=== PATIENT | female | born 1945 | race African-American/Black ===

== ENCOUNTER 2017-03-08 09:09 | Emergency (ER) | payer MEDICARE, BC ==
[~2017-03-08] VITALS: Ht 160 cm; Wt 62.6 kg
[~2017-03-08 09:09] MED LIST: AMLODIPINE BESY10 MG ORAL; ATENOLOL100 MG ORAL; GLIMEPIRIDE4 MG ORAL; GLUCOPHAGE850 MG ORAL; LANTUS5 UNITS SUBQ; LOSARTAN-HCTZ1 EACH ORAL; NORCO1 EA ORAL; SYNTHROID100 MCG ORAL; VITAMIN B COMP1 EAC2 ORAL; VITAMIN D400 INTLU ORAL; ZOCOR20 MG ORAL
[2017-03-08 09:31] VITALS: BP 200/66
[2017-03-08 09:55] VITALS: BP 183/65
[2017-03-08 10:00] VITALS: BP 183/65
--- NOTE | 2017-03-08 11:40 | Emergency Room Report ---
History of Present Illness General Chief Complaint: Hypertension Source: Medical Record Present Illness HPI 71-year-old female presents to ED for evaluation. Patient states she woke up this morning and her blood pressure was high. Notes history of hypertension and takes multiple medications. States she is compliant with her medications. took her morning medications prior to arrival. Denies any headaches or dizziness. Denies any chest pain or shortness of breath. No other aggravating relieving factors. No associated symptoms Allergies: Coded Allergies: No Known Allergies (Unverified , 03/18/13) Patient History Past Medical History: none Past Surgical History: none Pertinent Family History: none Social History: Denies: smoking, alcohol use, drug use Now: No Immunizations: UTD Reviewed Nursing Documentation: PMH: Agreed, PSxH: Agreed Nursing Documentation-PMH Hx Cardiac Problems: Yes Hx Hypertension: Yes Hx Diabetes: Yes - Hypothyroid Hx Gastrointestinal Problems: Yes - "Sometimes I have heartburn" Hx Neurological Problems: No Review of Systems All Other Systems: negative except mentioned in HPI Physical Exam Vital Signs Date Time Temp Pulse Resp B/P (MAP) Pulse Ox O2 Delivery O2 Flow Rate FiO2 03/08/17 09:11 97.9 80 16 219/82 99 Room Air Sp02 EP Interpretation: reviewed, normal General Appearance: no apparent distress, alert, GCS 15, non-toxic Head: normocephalic, atraumatic Eyes: bilateral eye normal inspection, bilateral eye PERRL ENT: hearing grossly normal, normal pharynx, no angioedema, normal voice Neck: full range of motion, supple/symm/no masses Respiratory: chest non-tender, lungs clear, normal breath sounds, speaking full sentences Cardiovascular #1: regular rate, rhythm, no edema Cardiovascular #2: 2+ carotid (R), 2+ carotid (L), 2+ radial (R), 2+ radial (L) , 2+ dorsalis pedis (R), 2+ dorsalis pedis (L) Gastrointestinal: normal bowel sounds, non tender, soft, non-distended, no guarding, no rebound Rectal: deferred Genitourinary: normal inspection, no CVA tenderness Musculoskeletal: back normal, gait/station normal, normal range of motion, non- tender Neurologic: alert, oriented x3, responsive, motor strength/tone normal, sensory intact, speech normal Psychiatric: judgement/insight normal, memory normal, mood/affect normal, no suicidal/homicidal ideation Reflexes: 3+ bicep (R), 3+ bicep (L), 3+ tricep (R), 3+ tricep (L), 3+ knee (R) , 3+ knee (L) Skin: normal color, no rash, warm/dry, well hydrated Lymphatic: no adenopathy Medical Decision Making Diagnostic Impression: Primary Impression: Hypertension Qualified Codes: I10 - Essential (primary) hypertension ER Course Hospital Course 71-year-old female presents ED complaining of elevated BP, asymptomatic Differential diagnoses include: hypertensive urgency, hypertensive emergency, noncompliance with medication Clinical course Patient placed on stretcher. After initial history and physical I observe the patient on the monitor Patient had taken her medications prior to arrival. On reassessment blood pressure has since improved. I don't believe patient requires any additional treatment. This is asymptomatic hypertension I. I feel this is a highly complex case requiring extensive working including EKG/Rhythm strip, Xray/CT/US, Blood/urine lab work, repeat exams while in ED, and administration of strong opiates/narcotics for pain control, admission to hospital or close patient follow up. Diagnosis - hypertension Stable and discharged to home. continue medications as directed. Instructed to followup with PMD. Return to ED if symptoms recur or worsen Last Vital Signs Date Time Temp Pulse Resp B/P (MAP) Pulse Ox O2 Delivery O2 Flow Rate FiO2 03/08/17 10:00 97.9 71 18 183/65 98 Room Air Status: improved Disposition: HOME, SELF-CARE Condition: Stable Referrals: NON PHYSICIAN (PCP) Patient Instructions: Hypertension AYANNA MILLER M.D. Mar 08, 2017 11:40
== END 2017-03-08 10:00 | disposition home or self-care (01) ==
LOC: EMR 09:36
DX: I10 Essential (primary) hypertension (principal); E11.9 Type 2 diabetes mellitus without complications; E03.9 Hypothyroidism, unspecified
CPT/HCPCS: 99282

== ENCOUNTER 2017-08-20 09:49 | Inpatient (IN) | payer MEDICARE, BC ==
[~2017-08-20] VITALS: Ht 160 cm; Wt 66.7 kg
[2017-08-20] MEDS ORDERED: SYNTHROID100 MCG ORAL (09:54)
[2017-08-20] MEDS ORDERED: TENORMIN50 MG ORAL (09:54)
[2017-08-20] MEDS ORDERED: LASIX20 M1 ORAL (09:54)
[2017-08-20] MEDS ORDERED: GLIMEPIRIDE4 MG ORAL (09:54)
[2017-08-20] MEDS ORDERED: SIMVASTATIN20 MG ORAL (09:54)
[2017-08-20] MEDS ORDERED: NIFEDIPINE ER60 M2 ORAL (09:54)
[2017-08-20] MEDS ORDERED: HYDRALAZINE HC100 MG ORAL (09:54)
[2017-08-20] MEDS ORDERED: METFORMIN HCL1000 M1 ORAL (09:54)
[2017-08-20] MEDS ORDERED: BYSTOLIC20 MG ORAL (09:54)
[2017-08-20] MEDS ORDERED: LOSARTAN POTAS100 MG ORAL (09:54)
[2017-08-20] MEDS ORDERED: ECOTRIN81 MG PO (09:54)
[2017-08-20 10:00] VITALS: BP 150/55
--- NOTE | 2017-08-20 10:16 | Emergency Room Report ---
History of Present Illness General Chief Complaint: Generalized Weakness Source: Patient, EMS Present Illness HPI The patient presents with right-sided weakness. She woke up and felt a charley horse in her right leg and jumped up and had difficulty walking. She also feels numbness in her right arm. She denies any headache. She does have somewhat retention and edema. She's taking Lasix for that. He's never had a stroke in the past. Denies any chest pain, palpitations, dyspnea, fevers headache. When she went to bed last night she was well. She woke up about 9 this morning. Paramedics performed laps exam and says that she had no weakness. H/O DM and HTN Allergies: Coded Allergies: No Known Allergies (Unverified , 03/18/13) Patient History Past Medical History: see triage record Past Surgical History: hysterectomy Social History: Denies: smoking Social History Narrative at home Reviewed Nursing Documentation: PMH: Agreed, PSxH: Agreed Nursing Documentation-PMH Hx Cardiac Problems: Yes Hx Hypertension: Yes Hx Diabetes: Yes Hx Gastrointestinal Problems: Yes - "Sometimes I have heartburn" Hx Neurological Problems: No Review of Systems All Other Systems: negative except mentioned in HPI Physical Exam Vital Signs Date Time Temp Pulse Resp B/P (MAP) Pulse Ox O2 Delivery O2 Flow Rate FiO2 08/20/17 09:43 98.1 72 16 151/56 100 Room Air Sp02 EP Interpretation: reviewed, normal General Appearance: well appearing, no apparent distress, GCS 15 Head: normocephalic, atraumatic Eyes: bilateral eye normal inspection, bilateral eye PERRL, bilateral eye EOMI ENT: moist mucus membranes Neck: supple Respiratory: lungs clear, normal breath sounds Cardiovascular #1: regular rate, rhythm Cardiovascular #2: 2+ radial (R) Gastrointestinal: normal inspection, normal bowel sounds, non tender, no mass, non-distended Musculoskeletal: back normal, normal range of motion, other - unsteady gait with alleged R leg weakness Neurologic: oriented x3, peer health promoter III-XII nml as tested, motor weakness - 5 /5 except for drift, sensory deficit - subjective decreased sens R arm, other - R drift Psychiatric: mood/affect normal Skin: normal inspection, warm/dry Medical Decision Making Diagnostic Impression: Primary Impression: Stroke Qualified Codes: I63.9 - Cerebral infarction, unspecified Additional Impressions: Renal insufficiency CHF (congestive heart failure) Qualified Codes: I50.9 - Heart failure, unspecified Hyperglycemia ER Course The patient presents with right sided weakness. Last known well time was last night before going to bed. Differential includes CVA, electrolyte balance, acute myocardial infarction, bleed amongst others. Evaluation will be was CT, EKG and labs. Based on the CT scan that she may need to have be transferred [facility] hospital care. Patient outside of window for TPA or transfer to stroke center. EKG without injury. Chest x-ray with minimal cardiomegaly. CT the head shows old changes no acute bleed or mass. Labs are significant for renal insufficiency. The patient is given insulin. In addition to that she's given aspirin. The patient is to telemetry to the care of Dr. Mcfarlane. Her neurologic exam is unchanged. Niece noted some resp difficulty. Patient denies. Rales. Lasix given. Improved. Dr. Mcfarlane evaluated patient in ED. Admit telemetry Dr. Mcfarlane. Laboratory Tests Test 08/20/17 09:55 08/20/17 11:58 White Blood Count 12.0 K/UL (4.8-10.8) H Red Blood Count 4.09 M/UL (4.20-5.40) L Hemoglobin 11.1 G/DL (12.0-16.0) L Hematocrit 33.6 % (37.0-47.0) L Mean Corpuscular Volume 82 FL (80-99) Mean Corpuscular Hemoglobin 27.1 PG (27.0-31.0) Mean Corpuscular Hemoglobin Concent 32.9 G/DL (32.0-36.0) Red Cell Distribution Width 13.8 % (11.6-14.8) Platelet Count 361 K/UL (150-450) Mean Platelet Volume 7.1 FL (6.5-10.1) Neutrophils (%) (Auto) 78.0 % (45.0-75.0) H Lymphocytes (%) (Auto) 13.7 % (20.0-45.0) L Monocytes (%) (Auto) 6.3 % (1.0-10.0) Eosinophils (%) (Auto) 0.7 % (0.0-3.0) Basophils (%) (Auto) 1.4 % (0.0-2.0) Erythrocyte Sedimentation Rate 58 MM/HR (0-30) H Prothrombin Time 9.3 SEC (9.30-11.50) Prothrombin Time INR 0.9 (0.9-1.1) PTT 26 SEC (23-33) Sodium Level 133 MMOL/L (136-145) L Potassium Level 4.4 MMOL/L (3.5-5.1) Chloride Level 103 MMOL/L (98-107) Carbon Dioxide Level 22 MMOL/L (21-32) Anion Gap 9 mmol/L (5-15) Blood Urea Nitrogen 42 mg/dL (7-18) H Creatinine 2.7 MG/DL (0.55-1.30) H Estimate Glomerular Filtration Rate mL/min (>60) Glucose Level 201 MG/DL (74-106) H Calcium Level 8.8 MG/DL (8.5-10.1) Total Bilirubin 0.2 MG/DL (0.2-1.0) Aspartate Amino Transferase (AST) 43 U/L (15-37) H Alanine Aminotransferase (ALT) 41 U/L (12-78) Alkaline Phosphatase 77 U/L (46-116) Total Creatine Kinase 212 U/L (26-308) Troponin I 0.004 ng/mL (0.000-0.056) Pro-B-Type Natriuretic Peptide 3132 pg/mL (0-125) H Total Protein 7.1 G/DL (6.4-8.2) Albumin 3.0 G/DL (3.4-5.0) L Globulin 4.1 g/dL Albumin/Globulin Ratio 0.7 (1.0-2.7) L Thyroid Stimulating Hormone (TSH) 3.853 uiU/mL (0.358-3.740) Urine Color Pale yellow Urine Appearance Clear Urine pH 6 (4.5-8.0) Urine Specific [place] 1.010 (1.005-1.035) Urine Protein 4+ (NEGATIVE) H Urine Glucose (UA) 1+ (NEGATIVE) H Urine Ketones Negative (NEGATIVE) Urine Occult Blood Negative (NEGATIVE) Urine Nitrite Negative (NEGATIVE) Urine Bilirubin Negative (NEGATIVE) Urine Urobilinogen Normal MG/DL (0.0-1.0) Urine Leukocyte Esterase Negative (NEGATIVE) Urine RBC 0-2 /HPF (0 - 2) Urine WBC 0-2 /HPF (0 - 2) Urine Squamous Epithelial Cells Few /LPF (NONE/OCC) Urine Bacteria Few /HPF (NONE) EKG Diagnostic Results Rate: normal Rhythm: NSR ST Segments: no acute changes Rhythm Strip Diag. Results EP Interpretation: yes Rhythm: NSR, no PVC's, no ectopy Chest X-Ray Diagnostic Results Chest X-Ray Diagnostic Results : Chest X-Ray Ordered: Yes # of Views/Limited/Complete: 1 View Indication: Other EP Interpretation: Yes Interpretation: no consolidation, no effusion, no pneumothorax, other - cardiomegally Impression: Other Electronically Signed by: Electronically signed by Eulogio Tenorio MD CT/MRI/US Diagnostic Results CT/MRI/US Diagnostic Results : Imaging Test Ordered: head Impression Some cortical calcifications in the right parietal lobe. No edema or mass. No intracranial hemorrhage or edema or mass effect. Low-attenuation in the pritesh may be artifact. Mild age-related enlargement of the ventricles and extra- axial CSF spaces. Chief periventricular white matter chronic ischemic change. Atarax surgery. Sinuses are clear. Assays are clear. Calvarium is intact. Negative for acute intracranial lesion or mass effect. Right parietal cortical calcification suspect dystrophic however comparison with prior exams recommended. Consider contrast MRI for further evaluation for rule out of underlying mass Last Vital Signs Date Time Temp Pulse Resp B/P (MAP) Pulse Ox O2 Delivery O2 Flow Rate FiO2 08/20/17 19:00 63 20 150/61 95 Room Air 08/20/17 17:00 98.1 Status: improved Disposition: ADMITTED INPATIENT Condition: Serious Eulogio Tenorio M.D. Aug 20, 2017 10:16
[2017-08-20 10:28] LABS: BASOPHILS % (AUTO) 1.4 % (0.0-2.0); EOSINOPHILS % (AUTO) 0.7 % (0.0-3.0); HEMATOCRIT 33.6 % (37.0-47.0); HEMOGLOBIN 11.1 G/DL (12.0-16.0); LYMPHOCYTES % (AUTO) 13.7 % (20.0-45.0); MEAN CORPUSCULAR VOLUME 82 FL (80-99); MONOCYTES % (AUTO) 6.3 % (1.0-10.0); PLATELET COUNT 361 K/UL (150-450); RED BLOOD COUNT 4.09 M/UL (4.20-5.40); RED CELL DISTRIBUTION WIDTH 13.8 % (11.6-14.8)
[2017-08-20 10:40] LABS: ANION GAP 9 mmol/L (5-15); BLOOD UREA NITROGEN 42 mg/dL (7-18); CALCIUM 8.8 MG/DL (8.5-10.1); CARBON DIOXIDE 22 MMOL/L (21-32); CHLORIDE 103 MMOL/L (98-107); CREATININE 2.7 MG/DL (0.55-1.30); POTASSIUM 4.4 MMOL/L (3.5-5.1); SODIUM 133 MMOL/L (136-145)
[2017-08-20 10:46] LABS: INR 0.9 (0.9-1.1)
--- NOTE | 2017-08-20 10:51 | Diagnostic Imaging Report ---
Indications: Right-sided weakness and right arm numbness Technique: Spiral acquisitions obtained through the brain. Angled axial and coronal 5 x 5 mm slices were reconstructed. Total dose length product 1404.24 mGycm. CTDI vol(s) 70.38 mGy. Dose reduction achieved using automated exposure control Comparison: None. Findings: There are some cortical calcifications in the right parietal lobe. No associated edema or mass. No acute intracranial hemorrhage or edema, mass effect, nor midline shift. Low-attenuation in the pritesh is likely artifactual. There is mild age-related enlargement of the ventricles and extra-axial CSF spaces. There is periventricular deep white matter chronic ischemic change. There is evidence of prior cataract surgery on the right. The sinuses are clear. The mastoids are clear. The calvarium is intact Impression: Negative for acute intracranial bleed or mass effect Right parietal cortical calcifications. Suspect dystrophic. However, comparison with any prior exams may be available as recommended. Consider contrast MRI for further evaluation to rule out underlying mass Other chronic and age-related changes, as described The CT scanner at [facility] is accredited by the [employer] and the scans are performed using protocols designed to limit radiation exposure to as low as reasonably achievable to attain images of sufficient resolution adequate for diagnostic evaluation.
[2017-08-20 10:54] LABS: ALANINE AMINOTRANSFERASE 41 U/L (12-78); ALBUMIN/GLOBULIN RATIO 0.7 (1.0-2.7); ALKALINE PHOSPHATASE 77 U/L (46-116); ASPARTATE AMINO TRANSFERASE 43 U/L (15-37); BILIRUBIN,TOTAL 0.2 MG/DL (0.2-1.0); CREATINE KINASE 212 U/L (26-308)
--- NOTE | 2017-08-20 11:33 | Diagnostic Imaging Report ---
Indication: Shortness of breath Technique: One view of the chest Comparison: none Findings: The heart is enlarged. The lungs and pleural spaces are clear. The bones are unremarkable Impression: Cardiac megaly No definite acute process This agrees with the preliminary interpretation provided by the emergency room physician
[2017-08-20 12:00] VITALS: BP 147/47
[2017-08-20 12:07] LABS: APPEARANCE,URINE CLEAR; BILIRUBIN, URINE NEGATIVE (NEGATIVE); COLOR,URINE PALE YELLOW; GLUCOSE, URINE (UA) 1+ (NEGATIVE); KETONES,URINE NEGATIVE (NEGATIVE); LEUKOCYTE ESTERASE ,URINE NEGATIVE (NEGATIVE); NITRITE,URINE NEGATIVE (NEGATIVE); PH,URINE 6 (4.5-8.0); PROTEIN,URINE 4+ (NEGATIVE); UROBILINOGEN,URINE NORMAL MG/DL (0.0-1.0)
[2017-08-20 14:00] VITALS: BP 140/72
[2017-08-20] MEDS ORDERED: NOVOLOG MI100 UNIT/3 SQ (14:12)
[2017-08-20] MEDS ORDERED: Nitroglycerin Subl 0.4mg tab SL PRN (14:45)
[2017-08-20] MEDS ORDERED: Miralax 17gm pkt ORAL PRN (14:45)
[2017-08-20 16:00] VITALS: BP 166/59
[2017-08-20] MEDS: NovoLOG Insulin Flexpen SUBQ SCH ×3 (17:22→20:33)
[2017-08-20] MEDS ORDERED: Furosemide 40mg tab ORAL SCH (18:00)
[2017-08-20] MEDS ORDERED: Glimepiride 4mg tab ORAL SCH (18:00)
[2017-08-20 19:00] VITALS: BP 150/61
[2017-08-20 20:00] VITALS: BP 157/75
[2017-08-20] MEDS: Furosemide 40mg tab ORAL SCH (20:29)
[2017-08-20] MEDS: Heparin 5000 units/ml inj SUBQ SCH (20:31)
[2017-08-20] MEDS: Docusate 100mg cap ORAL SCH (20:34)
[2017-08-21] VITALS (11 sets, daily range): BP systolic 146–187; BP diastolic 58–92
--- NOTE | 2017-08-21 00:45 | History and Physical Report ---
DATE OF ADMISSION: 08/20/2017 CHIEF COMPLAINT AND REASON FOR HOSPITALIZATION: The patient is admitted with possible CVA, weakness, and gait disorder. HISTORY OF PRESENT ILLNESS: The patient is a 71-year-old lady with long-standing diabetes more than 10 years, hypertension, chronic kidney disease. She said she woke up this morning with some cramping in her right leg and when she got out of bed, she had difficulty walking to the bathroom and was unsteady. She also noted some right hand numbness and sleepiness per right hand. No complete paresis. She rested and then when she woke up again, this was continuing and she called the paramedics and was brought to the emergency room. The patient does have a history of diabetic neuropathy and also carpal tunnel disease, but the right hand sensation is different from those that she has had in the past. Three weeks ago, she had a cold and had some shortness of breath at that time. She has chronic leg edema and likely chronic kidney disease. There is no history of ME or angina or arrhythmias. She has had somewhat of a decreased appetite lately. She was seen in the emergency room and felt the need to be admitted for this problem. PAST SURGICAL HISTORY: Hysterectomy for benign disease in 1986, cataract in the right eye. She has also had laser for diabetic retinopathy in the left eye. MEDICATIONS: At home include amlodipine 10 mg daily; aspirin 81 mg daily; atenolol 50 mg daily; furosemide 20 mg b.i.d.; glimepiride 4 mg b.i.d.; losartan and hydrochlorothiazide 100/25 mg daily; hydralazine 100 mg every eight hours; NovoLog 70/30 24 units three times a day; Synthroid 100 mcg daily; metformin 1000 mg b.i.d. or 850 b.i.d., it is not clear; Bystolic 20 mg daily; nifedipine ER 60 mg b.i.d.; Zocor 20 mg daily; vitamin B complex daily; vitamin D 2000 units daily. ALLERGIES: None known. HABITS: She is a nondrinker and nonsmoker. No use of illicit drugs. REVIEW OF SYSTEMS: HEAD, EYES, EARS, NOSE, AND THROAT: History of diabetic retinopathy. 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 ENDOCRINE: Diabetes, obesity long-standing, history of hypothyroidism. PULMONARY: No asthma, TB, or chronic cough. She has had some shortness of breath. CARDIAC: No angina or ME. She is not sure if she has had CHF but she has had leg edema. GASTROINTESTINAL: She has had some anorexia lately. No gastrointestinal bleeding or ulcers. GENITOURINARY: No recent dysuria or hematuria. NEUROLOGIC: No prior history of CVA or syncope. PHYSICAL EXAMINATION: GENERAL: The patient is alert, pleasant lady in no acute distress, seen in the emergency department. VITAL SIGNS: Temperature 98.1 degrees, pulse 72, respirations 16, and blood pressure . HEAD EYES, EARS, NOSE, AND THROAT: Sclerae nonicteric. Ocular motions intact in all directions. Oral mucosa moist. NECK: No adenopathy or thyroid enlargement. LUNGS: Clear to auscultation. HEART: Rhythm is regular. There is an apical S4 and a 1 to 2/6 systolic ejection murmur along the left sternal border. ABDOMEN: Soft without organomegaly or masses. EXTREMITIES: Show 2+ leg edema. NEUROLOGIC: The patient is alert and oriented. Speech is clear. Ocular motions intact in all directions. Smile is symmetric. Tongue is midline. She moves all extremities equally. Dorsiflexion of the legs appear to be normal. I do not see any palmar drift. PERTINENT LABORATORY AND DIAGNOSTIC DATA: A CT of brain was negative for acute intracranial bleed or mass effect. Right parietal cortical calcifications were noted. Chronic age related changes as above. The chest x-ray was done showing cardiomegaly, no acute process. Laboratory, white count 12, hemoglobin 11.1. Sodium 133, potassium 4.4, BUN 42, creatinine 2.7, glucose 201. BNP 3132. Troponin 0.004. Albumin 3.0. Urinalysis shows 0 to 2 white cells, 0 to 2 red cells, 4+ proteinuria. IMPRESSION: The patient presents with some difficulty walking and right-sided symptoms, possible lacunar infarct. MRI is pending. She also has what appears to be diabetic nephropathy, retinopathy, and neuropathy. She has chronic kidney disease stage 3 to 4 and heavy proteinuria. The emergency room physician gave her Lasix as he felt he heard rales and there was concern for congestive heart failure and she does have an elevated BNP. PLAN: The patient will be observed closely for any neurologic deficit. We will get MRI of the brain. Check a carotid duplex. Continue her treatment for her fluid overload, diabetes, and hypertension. Tyree Mcfarlane M.D. DR: David JOB#: [id number] CC:
[2017-08-21] MEDS: NovoLOG Insulin Flexpen SUBQ SCH ×7 (06:16→21:02)
[2017-08-21 06:39] LABS: BASOPHILS % (AUTO) 1.7 % (0.0-2.0); EOSINOPHILS % (AUTO) 1.9 % (0.0-3.0); HEMATOCRIT 33.9 % (37.0-47.0); HEMOGLOBIN 11.1 G/DL (12.0-16.0); LYMPHOCYTES % (AUTO) 20.7 % (20.0-45.0); MEAN CORPUSCULAR VOLUME 83 FL (80-99); MONOCYTES % (AUTO) 9.7 % (1.0-10.0); PLATELET COUNT 319 K/UL (150-450); RED BLOOD COUNT 4.09 M/UL (4.20-5.40); RED CELL DISTRIBUTION WIDTH 13.6 % (11.6-14.8); WHITE BLOOD COUNT 12.5 K/UL (4.8-10.8)
[2017-08-21 07:25] LABS: ANION GAP 9 mmol/L (5-15); BLOOD UREA NITROGEN 43 mg/dL (7-18); CALCIUM 8.7 MG/DL (8.5-10.1); CARBON DIOXIDE 23 MMOL/L (21-32); CHLORIDE 105 MMOL/L (98-107); CREATININE 2.6 MG/DL (0.55-1.30); POTASSIUM 4.6 MMOL/L (3.5-5.1); SODIUM 137 MMOL/L (136-145)
[2017-08-21] MEDS: Aspirin EC 81mg tab ORAL SCH (08:30)
[2017-08-21] MEDS: Furosemide 40mg tab ORAL SCH ×2 (08:31→17:32)
[2017-08-21] MEDS: Losartan 50mg tab ORAL SCH (08:31)
[2017-08-21] MEDS: Glimepiride 4mg tab ORAL SCH ×2 (08:31→17:32)
[2017-08-21] MEDS: Heparin 5000 units/ml inj SUBQ SCH ×2 (08:32→21:01)
[2017-08-21] MEDS: Docusate 100mg cap ORAL SCH ×2 (08:33→20:58)
--- NOTE | 2017-08-21 11:04 | Neurology Progress Note ---
Objective Physical Exam Last Vital Signs Date Time Temp Pulse Resp B/P (MAP) Pulse Ox O2 Delivery O2 Flow Rate FiO2 08/21/17 08:31 180/74 08/21/17 08:31 74 08/21/17 08:00 98.4 20 95 Room Air Laboratory Tests Test 08/20/17 11:58 08/21/17 05:45 Urine Color Pale yellow Urine Appearance Clear Urine pH 6 (4.5-8.0) Urine Specific [place] 1.010 (1.005-1.035) Urine Protein 4+ (NEGATIVE) H Urine Glucose (UA) 1+ (NEGATIVE) H Urine Ketones Negative (NEGATIVE) Urine Occult Blood Negative (NEGATIVE) Urine Nitrite Negative (NEGATIVE) Urine Bilirubin Negative (NEGATIVE) Urine Urobilinogen Normal MG/DL (0.0-1.0) Urine Leukocyte Esterase Negative (NEGATIVE) Urine RBC 0-2 /HPF (0 - 2) Urine WBC 0-2 /HPF (0 - 2) Urine Squamous Epithelial Cells Few /LPF (NONE/OCC) Urine Bacteria Few /HPF (NONE) White Blood Count 12.5 K/UL (4.8-10.8) H Red Blood Count 4.09 M/UL (4.20-5.40) L Hemoglobin 11.1 G/DL (12.0-16.0) L Hematocrit 33.9 % (37.0-47.0) L Mean Corpuscular Volume 83 FL (80-99) Mean Corpuscular Hemoglobin 27.2 PG (27.0-31.0) Mean Corpuscular Hemoglobin Concent 32.8 G/DL (32.0-36.0) Red Cell Distribution Width 13.6 % (11.6-14.8) Platelet Count 319 K/UL (150-450) Mean Platelet Volume 6.8 FL (6.5-10.1) Neutrophils (%) (Auto) 66.0 % (45.0-75.0) Lymphocytes (%) (Auto) 20.7 % (20.0-45.0) Monocytes (%) (Auto) 9.7 % (1.0-10.0) Eosinophils (%) (Auto) 1.9 % (0.0-3.0) Basophils (%) (Auto) 1.7 % (0.0-2.0) Sodium Level 137 MMOL/L (136-145) Potassium Level 4.6 MMOL/L (3.5-5.1) Chloride Level 105 MMOL/L (98-107) Carbon Dioxide Level 23 MMOL/L (21-32) Anion Gap 9 mmol/L (5-15) Blood Urea Nitrogen 43 mg/dL (7-18) H Creatinine 2.6 MG/DL (0.55-1.30) H Estimat Glomerular Filtration Rate mL/min (>60) Glucose Level 134 MG/DL (74-106) H Calcium Level 8.7 MG/DL (8.5-10.1) Impression/Recommendations Problems: (1) Acute ischemic left [employer] stroke (2) Renal insufficiency (3) CHF (congestive heart failure) (4) Hypertension Status: unchanged Recommendations #[id number] DAT ARBOLEDA Aug 21, 2017 11:04
[2017-08-21] MEDS ORDERED: LORazepam Inj 2mg/ml 1ml IV ONE (11:15)
--- NOTE | 2017-08-21 14:15 | Diagnostic Imaging Report ---
Indication: Right hand numbness and gait disorder Technique: sagittal T1 fast spin echo, axial T1 FLAIR, axial T2 FLAIR, axial T2 FS PROPELLER, axial T2* GRE, axial diffusion weighted images. ADC and exponential ADC maps generated Comparison: Head CT 08/20/2017 Findings: Small focus of restricted diffusion is seen in the left side of the pritesh and midbrain. This demonstrates some high T2 signal. There is also an older lacunar infarct of the pritesh and midbrain, which is immediately to the right of midline and midbrain, extending slightly to the left of midline in the pritesh. This is also evident on the prior CT scan. No other foci of restricted diffusion. No acute hemorrhage. Mild age-related enlargement of the ventricles and extra axial CSF spaces. There is periventricular deep white matter chronic ischemic change. Small old lacunar infarcts versus prominent perivascular spaces are seen in the bilateral basal ganglia. The vascular flow voids are preserved. There is evidence of prior cataract surgery on the right. The sinuses are unremarkable Impression: Positive for acute infarct of the left pritesh and midbrain Negative for acute intracranial bleed or mass effect Multiple old infarcts, as described above Other chronic and age-related changes, as described Critical value findings phoned to Dr. Mcfarlane at the time of interpretation
--- NOTE | 2017-08-21 17:00 | Consultation ---
DATE OF CONSULTATION: 08/21/2017 NEUROLOGICAL CONSULTATION CONSULTING PHYSICIAN: Salvador Thomas M.D. REQUESTING PHYSICIAN: Tyree Mcfarlane M.D. HISTORY OF PRESENT ILLNESS: This is a 71-year-old female, seen in neurological consultation to evaluate an acute stroke. According to the patient as well as from medical records known that she is usually ambulatory without assistance, went to bed feeling fairly well, but then around 4 a.m., she woke up with sensation of cramp in her right calf. She tried to go to the bathroom, she felt very unsteady. She is claiming that right leg with not . In addition, she felt some numbness in her right upper extremity. She was able to walk to the bathroom by holding to the wall, come back, felt no improvement, and called paramedics. Ambulance arrived. Her vital signs are stable. Blood pressure 150/56, blood sugar 137, and respirations 16. Calypso coma scale was 15. The patient was brought to the emergency room. She was denying headache. No chest pain. No palpitations. No respiratory problems. No headache. According to the paramedics, the patient had no unilateral weakness. Blood pressure on admission was stable. There was slight drift on the right extremity, 5-/5. Stat CT of the brain was obtained. This revealed no acute intracranial abnormalities. There was a right parietal cortical calcification noted. Chest x-ray, no definitive acute process. Mild cardiomegaly noted. Lab work included CBC study with WBC 12.0, hemoglobin 11.1, and hematocrit 33.6. Coagulation panel was normal. Urinalysis, 4+ protein. Chemistry panel with elevated BUN of 42, creatinine 2.7, glucose 201, and BNP 3042. Normal troponin. Elevated TSH at 3.853. Since admission till present, there were no changes in her status. The patient noted some crampy pains in her left knee and neck. PAST MEDICAL HISTORY: The patient has extensive medical history. This included hypertension, diabetes, diabetic neuropathy, hypothyroidism, and hyperlipidemia. No previous strokes, TIA, or seizures. PAST SURGICAL HISTORY: Surgical procedures included laser surgery in the left eye, status post cataract removal right eye, and hysterectomy. MEDICATIONS: The patient's treatment prior to admission included amlodipine, aspirin, atenolol, furosemide, glimepiride, losartan, hydralazine, insulin, Synthroid, metformin, nifedipine, Zocor, and vitamin supplements. ALLERGIES: None reported. SOCIAL HISTORY: No alcohol. No drug abuse. Nonsmoker. FAMILY HISTORY: Noncontributory. REVIEW OF SYSTEMS: Now indicated slight cramps in her left knee and neck region. Clumsy right leg. Difficulty ambulation. She denies headache or dizziness. No chest pain. No palpitations. No respiratory problems. Denies abdominal pain or discomfort. No urine or bowel incontinence. She has swelling in both lower extremities. PHYSICAL EXAMINATION: GENERAL: This is a well-developed, well-nourished lady sitting in a chair. VITAL SIGNS: Now stable. Blood pressure went up to 180/74. She is afebrile. Heart rate of 74. HEENT: Head normocephalic. No evidence of trauma. Eyes, ears, and throat are clear. NECK: Supple. No meningeal signs. MUSCULOSKELETAL EXAMINATION: Unremarkable. A 1+ pitting edema at both ankles. Peripheral pulses 1+ and symmetric. MENTAL STATUS: The patient is alert and oriented x3 with no evidence of aphasia or apraxia. Cognitive function normal. CRANIAL NERVE II: Pupils both responding to light and accommodation. Extraocular movement intact. CRANIAL NERVE V: Normal corneal responses. CRANIAL NERVE VII: No facial asymmetry. CRANIAL NERVE VIII: Decreased hearing. CRANIAL NERVES IX THROUGH XII: Tongue is in midline. Symmetric palate elevation. MOTOR EXAMINATION: Revealed pronation drift in the right upper extremity. 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 A 5-/5 right hip flexor. No involuntary movement. No muscle wasting noted. Deep tendon reflexes depressed bilaterally. Plantar response is mute. SENSORY EXAMINATION: Decreased response to pin stimulation in both feet. COORDINATION: Clumsy right [id number] and [id number] test. GAIT: The patient had a positive Romberg test. She is very unsteady. Required full assist. IMPRESSION: 1. Acute onset of right hemiataxia and mild hemiparesis. Hemiparesis most likely representing left-sided ischemic hemispheric stroke. 2. Diabetes, diabetic polyneuropathy. 3. Hypertension. 4. Hyperlipidemia. 5. Renal insufficiency. DISCUSSION: The patient has evidence of acute neurological deficit, mild right hemiparesis, and gait hemiataxia suspicious for left BLEACHER OPERATOR distribution infarct. Acute stat MRI of the brain without contrast will be obtained. Review carotid duplex study. Repeat lipid panel, PAMELA, and sedimentation rate. Consider a 2D echocardiogram. Venous duplex of both lower extremities. The patient will continue with aspirin. Add Plavix 75 mg and statins. Maintain systolic blood pressure above 140 and below 170. PT and OT assessment and speech therapy assessment. Maintain fall precautions. We will follow with you. Thank you for allowing me to see this interesting patient in neurological consultation. Salvador Irish Thomas DR: KASI JOB#: [id number] CC:
--- NOTE | 2017-08-21 17:30 | General Progress Note ---
Assessment/Plan Problem List: (1) Dysphagia ICD Codes: R13.10 - Dysphagia, unspecified SNOMED: 55810185, 968196346 (2) CKD (chronic kidney disease) stage 3, GFR 30-59 ml/min ICD Codes: N18.3 - Chronic kidney disease, stage 3 (moderate) SNOMED: 682905156 (3) Diabetic nephropathy with proteinuria ICD Codes: E11.21 - Type 2 diabetes mellitus with diabetic nephropathy SNOMED: 52548891, 413376297 (4) Diabetes ICD Codes: E11.9 - Type 2 diabetes mellitus without complications SNOMED: 46723539 (5) CVA (cerebral vascular accident) ICD Codes: I63.9 - Cerebral infarction, unspecified SNOMED: 312280329 (6) Acute ischemic left BEAM DOFFER stroke ICD Codes: I63.532 - Cerebral infarction due to unspecified occlusion or stenosis of left posterior cerebral artery SNOMED: 217810802 (7) CHF (congestive heart failure) ICD Codes: I50.9 - Heart failure, unspecified SNOMED: 90063609 Qualifiers: Qualified Codes: I50.9 - Heart failure, unspecified (8) Hypertension ICD Codes: I10 - Essential (primary) hypertension SNOMED: 59201901 Assessment/Plan new cva, continue PT OT ST, titrate bp meds, insulin , rx for chf Subjective Constitutional: Reports: weakness Cardiovascular: Reports: no symptoms Respiratory: Reports: no symptoms Gastrointestinal/Abdominal: Reports: no symptoms Neurologic/Psychiatric: Reports: weakness Endocrine: Reports: no symptoms Hematologic/Lymphatic: Reports: anemia Allergies: Coded Allergies: No Known Allergies (Unverified , 03/18/13) Objective Last 24 Hour Vital Signs Date Time Temp Pulse Resp B/P (MAP) Pulse Ox O2 Delivery O2 Flow Rate FiO2 08/21/17 16:00 58 08/21/17 16:00 97.3 57 20 172/70 95 Room Air 08/21/17 14:50 61 20 150/72 95 Room Air 08/21/17 12:00 62 20 165/72 96 Room Air 08/21/17 12:00 63 08/21/17 11:30 63 20 178/71 95 Room Air 08/21/17 09:45 72 20 155/75 95 Room Air 08/21/17 08:31 180/74 08/21/17 08:31 74 180/74 08/21/17 08:30 74 180/74 08/21/17 08:00 63 08/21/17 08:00 98.4 74 20 180/74 95 Room Air 08/21/17 04:47 65 171/63 08/21/17 04:00 98.4 68 20 187/71 92 Room Air 08/21/17 04:00 66 08/21/17 00:00 60 08/21/17 00:00 98.4 66 20 146/61 96 Room Air 08/20/17 20:00 98.1 67 20 157/75 97 Room Air 08/20/17 20:00 63 08/20/17 19:00 63 20 150/61 95 Room Air Intake and Output 08/20/17 08/21/17 19:00 07:00 Intake Total 200 ml 240 ml Output Total 850 ml 250 ml Balance -650 ml -10 ml Intake Oral 200 ml 240 ml Output Urine Total 850 ml 250 ml # Voids 6 Laboratory Tests 08/21/17 05:45: White Blood Count 12.5H, Red Blood Count 4.09L, Hemoglobin 11.1L, Hematocrit 33.9L, Mean Corpuscular Volume 83, Mean Corpuscular Hemoglobin 27.2, Mean Corpuscular Hemoglobin Concent 32.8, Red Cell Distribution Width 13.6, Platelet Count 319, Mean Platelet Volume 6.8, Neutrophils (%) (Auto) 66.0, Lymphocytes (% ) (Auto) 20.7, Monocytes (%) (Auto) 9.7, Eosinophils (%) (Auto) 1.9, Basophils ( %) (Auto) 1.7, Sodium Level 137, Potassium Level 4.6, Chloride Level 105, Carbon Dioxide Level 23, Anion Gap 9, Blood Urea Nitrogen 43H, Creatinine 2.6H, Estimat Glomerular Filtration Rate , Glucose Level 134H, Calcium Level 8.7 Height (Feet): 5 Height (Inches): 3.00 Weight (Pounds): 147 General Appearance: no apparent distress, alert EENT: normal ENT inspection Neck: normal alignment Cardiovascular: normal rate, regular rhythm Respiratory/Chest: lungs clear Abdomen: non tender, soft Edema: 1+ Pedal (L), 1+ Pedal (R) 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
[2017-08-21] MEDS: HydrALAZINE 25mg tab ORAL SCH ×2 (18:18→20:58)
--- NOTE | 2017-08-21 18:23 | Cardiology Report ---
APPROVED REPORT EKG Measurement Heart [id number] Normal sinus rhythm Normal ECG
[2017-08-22] VITALS: BP 163/72
[2017-08-22 04:00] VITALS: BP 150/72
[2017-08-22] MEDS: NovoLOG Insulin Flexpen SUBQ SCH ×7 (05:39→20:41)
[2017-08-22] MEDS: HydrALAZINE 25mg tab ORAL SCH ×3 (05:39→17:13)
[2017-08-22 08:00] VITALS: BP 181/62
[2017-08-22 08:55] LABS: BASOPHILS % (AUTO) 1.2 % (0.0-2.0); EOSINOPHILS % (AUTO) 2.7 % (0.0-3.0); HEMATOCRIT 32.3 % (37.0-47.0); HEMOGLOBIN 10.6 G/DL (12.0-16.0); LYMPHOCYTES % (AUTO) 25.4 % (20.0-45.0); MEAN CORPUSCULAR VOLUME 83 FL (80-99); MONOCYTES % (AUTO) 10.2 % (1.0-10.0); NEUTROPHILS % (AUTO) 60.5 % (45.0-75.0); PLATELET COUNT 307 K/UL (150-450); RED BLOOD COUNT 3.92 M/UL (4.20-5.40); RED CELL DISTRIBUTION WIDTH 13.7 % (11.6-14.8); WHITE BLOOD COUNT 9.9 K/UL (4.8-10.8)
[2017-08-22] MEDS: Docusate 100mg cap ORAL SCH ×2 (09:00→20:42)
[2017-08-22] MEDS: Losartan 50mg tab ORAL SCH (09:00)
[2017-08-22] MEDS: Furosemide 40mg tab ORAL SCH ×2 (09:05→17:13)
[2017-08-22] MEDS: Glimepiride 4mg tab ORAL SCH ×2 (09:05→17:13)
[2017-08-22] MEDS: Aspirin EC 81mg tab ORAL SCH (09:05)
[2017-08-22] MEDS: Heparin 5000 units/ml inj SUBQ SCH ×2 (09:15→20:39)
[2017-08-22 09:16] LABS: ANION GAP 10 mmol/L (5-15); BLOOD UREA NITROGEN 46 mg/dL (7-18); CALCIUM 8.6 MG/DL (8.5-10.1); CARBON DIOXIDE 23 MMOL/L (21-32); CHLORIDE 103 MMOL/L (98-107); CREATININE 2.5 MG/DL (0.55-1.30); POTASSIUM 4.4 MMOL/L (3.5-5.1); SODIUM 136 MMOL/L (136-145)
--- NOTE | 2017-08-22 11:22 | Neurology Progress Note ---
Interim History Interim History ROS Limited/Unobtainable: No Complaints: unstable gait Events: better Objective Physical Exam Last Vital Signs Date Time Temp Pulse Resp B/P (MAP) Pulse Ox O2 Delivery O2 Flow Rate FiO2 08/22/17 09:16 66 181/62 08/22/17 08:00 99.3 18 94 Room Air Laboratory Tests Test 08/22/17 07:35 White Blood Count 9.9 K/UL (4.8-10.8) Red Blood Count 3.92 M/UL (4.20-5.40) L Hemoglobin 10.6 G/DL (12.0-16.0) L Hematocrit 32.3 % (37.0-47.0) L Mean Corpuscular Volume 83 FL (80-99) Mean Corpuscular Hemoglobin 27.1 PG (27.0-31.0) Mean Corpuscular Hemoglobin Concent 32.8 G/DL (32.0-36.0) Red Cell Distribution Width 13.7 % (11.6-14.8) Platelet Count 307 K/UL (150-450) Mean Platelet Volume 6.9 FL (6.5-10.1) Neutrophils (%) (Auto) 60.5 % (45.0-75.0) Lymphocytes (%) (Auto) 25.4 % (20.0-45.0) Monocytes (%) (Auto) 10.2 % (1.0-10.0) H Eosinophils (%) (Auto) 2.7 % (0.0-3.0) Basophils (%) (Auto) 1.2 % (0.0-2.0) Sodium Level 136 MMOL/L (136-145) Potassium Level 4.4 MMOL/L (3.5-5.1) Chloride Level 103 MMOL/L (98-107) Carbon Dioxide Level 23 MMOL/L (21-32) Anion Gap 10 mmol/L (5-15) Blood Urea Nitrogen 46 mg/dL (7-18) H Creatinine 2.5 MG/DL (0.55-1.30) H Estimat Glomerular Filtration Rate mL/min (>60) Glucose Level 174 MG/DL (74-106) H Calcium Level 8.6 MG/DL (8.5-10.1) Pro-B-Type Natriuretic Peptide 3595 pg/mL (0-125) H General: well developed, well nourished, no acute distress Head: normocophalic, atraumatic Neck: no rigidity EENT: benign Neurologic Exam Mental Status: awake, alert, oriented x4, normal cognition, good mathematical skills, normal recent memory, normal remote memory, preserved visuospatial function Speech: normal speech, no dysarthia Language: normal language, no aphasia Cranial Nerve II: fundus normal, visual ragsdale, no papilledema Cranial Nerves III, IV, : PERRLA, EOMI, pupils Cranial Nerve V: normal facial sensations, temporales function normal, masseters function normal, pterygoids function normal Cranial Nerve VII: normal facial expressions Cranial Nerve VIII: no nystagmus Cranial Nerve IX: gag response Cranial Nerve XI: trapezii function normal Cranial Nerve XII: no tongue atrophy/fasciculations Motor System: other - -5/5 R arm /leg Sensory: normal pinprick Coordination: other - clumsy R F/N and H/S Deep Tendon Reflexes: 0 bicep (L), 0 bicep (R), 0 tricep (L), 0 tricep (R), 0 brachioradialis (L), 0 brachioradialis (R), 0 knee (L), 0 knee (R), 0 ankle (L) , 0 ankle (R) Reflexes: mute plantar (L), mute plantar (R) Stance: other - unstable Gait: other - ataxic Impression/Recommendations Problems: (1) 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
--- NOTE | 2017-08-22 11:36 | Diagnostic Imaging Report ---
APPROVED REPORT CPT Code: 71487 Vascular Symptoms Comments: CVA Doppler Spectral Velocity Analysis RightLeft arteries. The Doppler spectral flow analysis indicates the degree of stenosis is mild (30%) in the common carotid artery, mild (50%) in the internal carotid artery, and mild (50%) in the external carotid artery. VERTEBRAL- The vertebral artery is patent, without evidence of stenosis or steal. arteries. The Doppler spectral flow analysis indicates the degree of stenosis is moderate (50%) in the common carotid artery, mild to moderate (50-59%) in the internal carotid artery, and the external carotid artery. VERTEBRAL- The vertebral artery is patent, without evidence of stenosis or steal.
[2017-08-22 12:00] VITALS: BP 134/63
[2017-08-22 16:00] VITALS: BP 156/73
[2017-08-22 20:06] VITALS: BP 188/72
--- NOTE | 2017-08-22 21:01 | General Progress Note ---
Assessment/Plan Problem List: (1) Dysphagia ICD Codes: R13.10 - Dysphagia, unspecified SNOMED: 27467747, 002908536 (2) CKD (chronic kidney disease) stage 3, GFR 30-59 ml/min ICD Codes: N18.3 - Chronic kidney disease, stage 3 (moderate) SNOMED: 789961617 (3) Diabetic nephropathy with proteinuria ICD Codes: E11.21 - Type 2 diabetes mellitus with diabetic nephropathy SNOMED: 24499680, 867014011 (4) Diabetes ICD Codes: E11.9 - Type 2 diabetes mellitus without complications SNOMED: 09335759 (5) CVA (cerebral vascular accident) ICD Codes: I63.9 - Cerebral infarction, unspecified SNOMED: 673256130 (6) 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 ICD Codes: I63.532 - Cerebral infarction due to unspecified occlusion or stenosis of left posterior cerebral artery SNOMED: 119498439 (7) CHF (congestive heart failure) ICD Codes: I50.9 - Heart failure, unspecified SNOMED: 71524809 Qualifiers: Qualified Codes: I50.9 - Heart failure, unspecified (8) Hypertension ICD Codes: I10 - Essential (primary) hypertension SNOMED: 98855208 Assessment/Plan new cva, continue PT OT ST, titrate bp meds, insulin , rx for chf Subjective Constitutional: Reports: weakness HEENT: Reports: no symptoms Cardiovascular: Reports: no symptoms Respiratory: Reports: no symptoms Gastrointestinal/Abdominal: Reports: no symptoms Genitourinary: Reports: no symptoms Neurologic/Psychiatric: Reports: weakness Endocrine: Reports: no symptoms Hematologic/Lymphatic: Reports: no symptoms Allergies: Coded Allergies: No Known Allergies (Unverified , 03/18/13) Objective Last 24 Hour Vital Signs Date Time Temp Pulse Resp B/P (MAP) Pulse Ox O2 Delivery O2 Flow Rate FiO2 08/22/17 20:06 97.7 75 20 188/72 95 Room Air 08/22/17 18:00 75 188/72 08/22/17 17:13 156/73 08/22/17 16:00 60 08/22/17 16:00 98.1 61 18 156/73 96 Room Air 08/22/17 12:00 97.9 60 18 134/63 95 Room Air 08/22/17 12:00 59 08/22/17 11:45 134/63 08/22/17 09:16 66 181/62 08/22/17 09:15 66 181/62 08/22/17 09:13 66 181/62 08/22/17 09:00 181/62 08/22/17 08:00 65 08/22/17 08:00 99.3 66 18 181/62 94 Room Air 08/22/17 05:39 150/72 08/22/17 04:00 97.5 60 21 150/72 93 08/22/17 04:00 59 08/22/17 00:00 97.3 66 20 163/72 93 Room Air 08/22/17 00:00 58 Intake and Output 08/21/17 08/22/17 19:00 07:00 Intake Total 360 ml 120 ml Output Total 350 ml 150 ml Balance 10 ml -30 ml Intake Oral 360 ml 120 ml Output Urine Total 350 ml 150 ml # Voids 1 1 Laboratory Tests 08/22/17 07:35: White Blood Count 9.9, Red Blood Count 3.92L, Hemoglobin 10.6L, Hematocrit 32.3L , Mean Corpuscular Volume 83, Mean Corpuscular Hemoglobin 27.1, Mean Corpuscular Hemoglobin Concent 32.8, Red Cell Distribution Width 13.7, Platelet Count 307, Mean Platelet Volume 6.9, Neutrophils (%) (Auto) 60.5, Lymphocytes (% ) (Auto) 25.4, Monocytes (%) (Auto) 10.2H, Eosinophils (%) (Auto) 2.7, Basophils (%) (Auto) 1.2, Sodium Level 136, Potassium Level 4.4, Chloride Level 103, Carbon Dioxide Level 23, Anion Gap 10, Blood Urea Nitrogen 46H, Creatinine 2.5H, Estimat Glomerular Filtration Rate , Glucose Level 174H, Calcium Level 8.6 , Pro-B-Type Natriuretic Peptide 3595H Height (Feet): 5 Height (Inches): 3.00 Weight (Pounds): 147 General Appearance: no apparent distress, alert EENT: normal ENT inspection Neck: non-tender Cardiovascular: normal rate, regular rhythm Respiratory/Chest: lungs clear Abdomen: non tender, soft Edema: moderate edema 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
[2017-08-22] MEDS: HydrALAZINE 50mg tab ORAL SCH (23:39)
[2017-08-23] VITALS: BP 162/90
[2017-08-23 04:00] VITALS: BP 157/82
--- NOTE | 2017-08-23 04:15 | Consultation ---
DATE OF CONSULTATION: 08/21/2017 CARDIOLOGY CONSULTATION CONSULTING PHYSICIAN: Eulogio Srivastava M.D. REQUESTING PHYSICIAN: Tyree Mcfarlane M.D. REASON FOR CONSULTATION: Cardiovascular management in the setting of acute cerebrovascular accident. HISTORY OF PRESENT ILLNESS: This pleasant 71-year-old female has a longstanding history of type 2 diabetes mellitus and hypertension with chronic kidney disease. She awakened yesterday with some cramping in her right lower extremity, difficulty walking, and unsteadiness. Subsequently, she noted right hand numbness. She went to rest, but the symptoms persisted. She came to the emergency room and she was admitted with a diagnosis of acute cerebrovascular accident. The patient does not have any history of irregular heartbeats. No prior myocardial infarction. There is no known history of blood clotting disorders. PAST MEDICAL HISTORY: Includes hypertension, type 2 diabetes mellitus, chronic venous insufficiency, chronic kidney disease, status post hysterectomy, and history of diabetic retinopathy. ALLERGIES: None known. MEDICATIONS: Prior to admission, reviewed and reconciled. SOCIAL HISTORY: Negative for smoking, alcohol, or substance abuse. FAMILY HISTORY: Not remarkable. REVIEW OF SYSTEMS: A 10-point review of systems performed, all systems negative other than noted above. PHYSICAL EXAMINATION: VITAL SIGNS: Blood pressure of 162/58, pulse 67, respirations 18, and afebrile. HEENT: Conjunctiva pink. Sclerae are anicteric. Oropharynx clear. NECK: Supple. LUNGS: Clear. CARDIAC: Regular rhythm and rate. Normal S1, S2 with a fourth heart sound. ABDOMEN: Soft, nontender. EXTREMITIES: No edema. NEUROLOGIC: Mild weakness on the right side. There is no facial asymmetry. LABORATORY AND DIAGNOSTIC DATA: EKG with sinus rhythm and no abnormalities. Pro-natriuretic peptide 3100. Troponin is negative. Albumin 3. BUN 42, creatinine 2.7. Potassium 4.4. A 4+ proteinuria. CAT scan reveals no acute process of the brain. Chest x-ray, no acute process. IMPRESSION: 1. Acute cerebrovascular accident with right-sided weakness. 2. Type 2 diabetes mellitus with retinopathy, neuropathy, and nephropathy. 3. Hypertensive heart disease with labile blood pressure/hypertensive urgency. 4. Acute on chronic diastolic congestive heart failure. PLAN: 1. Anti-platelet therapy. 2. Lipid panel. 3. Cardiac monitoring. 4. Titrate antihypertensives. 5. Avoid tight blood pressure control in this immediate acute CVA setting. 6. Hold additional diuresis for now. 7. MRI of the brain is pending. 8. Echocardiogram for assessment of left ventricular function and possible source of emboli will be obtained. Eulogio Srivastava M.D. DR: CORTEZ JOB#: [id number] CC:
[2017-08-23] MEDS: HydrALAZINE 50mg tab ORAL SCH ×3 (05:59→17:21)
[2017-08-23] MEDS: NovoLOG Insulin Flexpen SUBQ SCH ×7 (06:02→20:40)
[2017-08-23 08:00] VITALS: BP 164/71
[2017-08-23 08:10] LABS: ANION GAP 8 mmol/L (5-15); BLOOD UREA NITROGEN 45 mg/dL (7-18); CARBON DIOXIDE 25 MMOL/L (21-32); CHLORIDE 105 MMOL/L (98-107); CREATININE 2.3 MG/DL (0.55-1.30); POTASSIUM 4.1 MMOL/L (3.5-5.1); SODIUM 138 MMOL/L (136-145)
[2017-08-23] MEDS: Glimepiride 4mg tab ORAL SCH ×2 (09:37→17:21)
[2017-08-23] MEDS: Docusate 100mg cap ORAL SCH ×2 (09:38→20:39)
[2017-08-23] MEDS: Losartan 50mg tab ORAL SCH (09:38)
[2017-08-23] MEDS: Furosemide 40mg tab ORAL SCH ×2 (09:39→17:21)
[2017-08-23] MEDS: Aspirin EC 81mg tab ORAL SCH (09:39)
[2017-08-23] MEDS: Heparin 5000 units/ml inj SUBQ SCH ×2 (09:42→20:39)
[2017-08-23 12:00] VITALS: BP 161/67
[2017-08-23 16:00] VITALS: BP 160/61
--- NOTE | 2017-08-23 18:13 | Neurology Progress Note ---
Interim History Interim History ROS Limited/Unobtainable: No Complaints: unstable gait Events: better Objective Physical Exam Last Vital Signs Date Time Temp Pulse Resp B/P (MAP) Pulse Ox O2 Delivery O2 Flow Rate FiO2 08/23/17 17:22 65 160/61 08/23/17 16:00 97.2 20 99 Room Air Laboratory Tests Test 08/23/17 07:15 Sodium Level 138 MMOL/L (136-145) Potassium Level 4.1 MMOL/L (3.5-5.1) Chloride Level 105 MMOL/L (98-107) Carbon Dioxide Level 25 MMOL/L (21-32) Anion Gap 8 mmol/L (5-15) Blood Urea Nitrogen 45 mg/dL (7-18) H Creatinine 2.3 MG/DL (0.55-1.30) H Estimat Glomerular Filtration Rate mL/min (>60) Glucose Level 111 MG/DL (74-106) H Calcium Level 9.0 MG/DL (8.5-10.1) General: well developed, well nourished, no acute distress Head: normocophalic, atraumatic Neck: no rigidity EENT: benign Neurologic Exam Mental Status: awake, alert, oriented x4, normal cognition, good mathematical skills, normal recent memory, normal remote memory, preserved visuospatial function Speech: normal speech, no dysarthia Language: normal language, no aphasia Cranial Nerve II: fundus normal, visual ragsdale, no papilledema Cranial Nerves III, IV, : PERRLA, EOMI, pupils Cranial Nerve V: normal facial sensations, temporales function normal, masseters function normal, pterygoids function normal Cranial Nerve VII: normal facial expressions Cranial Nerve VIII: no nystagmus Cranial Nerve IX: gag response Cranial Nerve XI: trapezii function normal Cranial Nerve XII: no tongue atrophy/fasciculations Motor System: other - -5/5 R arm /leg Sensory: normal pinprick Coordination: other - clumsy R F/N and H/S Deep Tendon Reflexes: 0 bicep (L), 0 bicep (R), 0 tricep (L), 0 tricep (R), 0 brachioradialis (L), 0 brachioradialis (R), 0 knee (L), 0 knee (R), 0 ankle (L) , 0 ankle (R) Reflexes: mute plantar (L), mute plantar (R) Stance: other - unstable Gait: other - ataxic Impression/Recommendations Problems: (1) 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
--- NOTE | 2017-08-23 18:22 | General Progress Note ---
Assessment/Plan Problem List: (1) Dysphagia ICD Codes: R13.10 - Dysphagia, unspecified SNOMED: 86990334, 941160468 (2) CKD (chronic kidney disease) stage 3, GFR 30-59 ml/min ICD Codes: N18.3 - Chronic kidney disease, stage 3 (moderate) SNOMED: 856864440 (3) Diabetic nephropathy with proteinuria ICD Codes: E11.21 - Type 2 diabetes mellitus with diabetic nephropathy SNOMED: 27791614, 715462355 (4) Diabetes ICD Codes: E11.9 - Type 2 diabetes mellitus without complications SNOMED: 56456515 (5) CVA (cerebral vascular accident) ICD Codes: I63.9 - Cerebral infarction, unspecified SNOMED: 251732309 (6) 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 ICD Codes: I63.532 - Cerebral infarction due to unspecified occlusion or stenosis of left posterior cerebral artery SNOMED: 692534165 (7) CHF (congestive heart failure) ICD Codes: I50.9 - Heart failure, unspecified SNOMED: 88364346 Qualifiers: Qualified Codes: I50.9 - Heart failure, unspecified (8) Hypertension ICD Codes: I10 - Essential (primary) hypertension SNOMED: 38158726 Assessment/Plan new cva, continue PT OT ST, titrate bp meds, insulin , rx for chf Subjective Constitutional: Reports: weakness HEENT: Reports: no symptoms Cardiovascular: Reports: no symptoms Respiratory: Reports: no symptoms Gastrointestinal/Abdominal: Reports: no symptoms Genitourinary: Reports: no symptoms Neurologic/Psychiatric: Reports: weakness Endocrine: Reports: no symptoms Hematologic/Lymphatic: Reports: no symptoms Allergies: Coded Allergies: No Known Allergies (Unverified , 03/18/13) Objective Last 24 Hour Vital Signs Date Time Temp Pulse Resp B/P (MAP) Pulse Ox O2 Delivery O2 Flow Rate FiO2 08/23/17 17:22 65 160/61 08/23/17 17:21 160/61 08/23/17 16:00 97.2 65 20 160/61 99 Room Air 08/23/17 12:00 97.5 63 19 161/67 96 Room Air 08/23/17 12:00 60 08/23/17 11:52 161/67 08/23/17 09:40 65 164/71 08/23/17 09:40 65 164/71 08/23/17 09:38 164/71 08/23/17 08:00 97.2 65 20 164/71 98 Room Air 08/23/17 08:00 66 08/23/17 05:59 157/82 08/23/17 04:00 99.5 69 20 157/82 95 Room Air 08/23/17 04:00 64 08/23/17 00:00 97.3 64 22 162/90 95 Room Air 08/23/17 00:00 69 08/22/17 23:39 164/84 08/22/17 20:06 97.7 75 20 188/72 95 Room Air 08/22/17 20:00 69 Intake and Output 08/22/17 08/23/17 19:00 07:00 Intake Total 360 ml Output Total 450 ml Balance -90 ml Intake Oral 360 ml Output Urine Total 450 ml # Voids 1 1 Laboratory Tests 08/23/17 07:15: Sodium Level 138, Potassium Level 4.1, Chloride Level 105, Carbon Dioxide Level 25, Anion Gap 8, Blood Urea Nitrogen 45H, Creatinine 2.3H, Estimat Glomerular Filtration Rate , Glucose Level 111H, Calcium Level 9.0 Height (Feet): 5 Height (Inches): 3.00 Weight (Pounds): 147 General Appearance: no apparent distress, alert EENT: normal ENT inspection Neck: non-tender Cardiovascular: normal rate, regular rhythm Respiratory/Chest: lungs clear Abdomen: non tender Edema: mild edema Neurologic: motor weakness, other - r leg drag LINO FORMAN Aug 23, 2017 18:22
[2017-08-23 20:00] VITALS: BP 147/65
--- NOTE | 2017-08-23 20:01 | Progress Note ---
DATE: 08/22/2017 CARDIOLOGY PROGRESS NOTE SUBJECTIVE: The patient still has right weakness and hyperesthesia on the right side. Imaging studies have revealed an occluded left posterior cerebral artery. OBJECTIVE: VITAL SIGNS: Blood pressure 134/63 to 188/72, heart rate 60 to 75, and respiratory rate 18 to 20. The patient is afebrile. LUNGS: Clear. CARDIAC: Regular. Normal S1 and S2 with a fourth heart sound. ABDOMEN: Soft. EXTREMITIES: A 1+ to 2+ dependent edema. LABORATORY DATA: BUN 46 and creatinine 2.5. White count 3.9 and hemoglobin 10.6. Pro-natriuretic peptide 3595. IMPRESSION: 1. Acute cerebrovascular accident. 2. Hypertensive heart disease. 3. No signs of atrial arrhythmias. 4. Acute on chronic diastolic congestive heart failure. 5. Chronic venous insufficiency with lower extremity edema. 6. Type 2 diabetes mellitus. 7. Chronic kidney disease stage 3 to 4. PLAN: 1. Anti-platelet and anti-lipid therapy. 2. Titration of antihypertensives. 3. Avoid orthostasis. 4. Monitor volume status and cardiorenal parameters and cautiously diurese. 5. Physical and occupational therapy. Eulogio Srivastava M.D. DR: RAYMON JOB#: [id number] CC:
[2017-08-24] VITALS: BP 133/67
[2017-08-24] MEDS: HydrALAZINE 50mg tab ORAL SCH ×4 (00:09→17:52)
--- NOTE | 2017-08-24 01:31 | Progress Note ---
DATE: 08/23/2017 CARDIOLOGY PROGRESS NOTE SUBJECTIVE: The patient is awake and alert. She has no new complaints. No neurologic deficits. OBJECTIVE: VITAL SIGNS: Blood pressure 160/60, pulse 65, respirations 20, and oxygen saturation on room air 96% to 99%. NECK: Supple. LUNGS: Clear. CARDIAC: Regular. Normal S1 and S2. ABDOMEN: Soft. EXTREMITIES: There was right leg weakness. There was 1+ dependent edema. LABORATORY DATA: Potassium 4.1, BUN 45, and creatinine 2.3. IMPRESSION: 1. Acute cerebrovascular accident with right-sided weakness. 2. Acute on chronic diastolic congestive heart failure with lower extremity edema. 3. Acute on chronic renal failure. 4. Mildly elevated thyroid stimulating hormone. PLAN: 1. Check lipid panel. 2. Continue anti-platelet therapy. 3. Cautious diuresis. 4. Consider changing nifedipine, which may be aggravating lower extremity edema. 5. Physical and occupational therapy. Eulogio Srivastava M.D. DR: HI JOB#: [id number] CC:
[2017-08-24 04:00] VITALS: BP 164/75
[2017-08-24] MEDS: NovoLOG Insulin Flexpen SUBQ SCH ×6 (06:10→17:59)
[2017-08-24 08:00] VITALS: BP 141/70
[2017-08-24] MEDS: Docusate 100mg cap ORAL SCH (08:30)
[2017-08-24] MEDS: Glimepiride 4mg tab ORAL SCH ×2 (08:31→17:52)
[2017-08-24] MEDS: Furosemide 40mg tab ORAL SCH ×2 (08:31→17:52)
[2017-08-24] MEDS: Aspirin EC 81mg tab ORAL SCH (08:31)
[2017-08-24] MEDS: Losartan 50mg tab ORAL SCH (08:32)
[2017-08-24] MEDS: Heparin 5000 units/ml inj SUBQ SCH (08:33)
[2017-08-24 08:53] LABS: ALANINE AMINOTRANSFERASE 26 U/L (12-78); ALBUMIN 2.6 G/DL (3.4-5.0); ALBUMIN/GLOBULIN RATIO 0.7 (1.0-2.7); ALKALINE PHOSPHATASE 76 U/L (46-116); ANION GAP 10 mmol/L (5-15); ASPARTATE AMINO TRANSFERASE 20 U/L (15-37); BILIRUBIN,TOTAL 0.1 MG/DL (0.2-1.0); BLOOD UREA NITROGEN 48 mg/dL (7-18); CARBON DIOXIDE 24 MMOL/L (21-32); CHLORIDE 105 MMOL/L (98-107); CHOLESTEROL 280 MG/DL (< 200); CREATININE 2.6 MG/DL (0.55-1.30); HDL CHOLESTEROL 72 MG/DL (40-60); POTASSIUM 3.9 MMOL/L (3.5-5.1); SODIUM 139 MMOL/L (136-145); TRIGLYCERIDES 268 MG/DL (30-150)
[2017-08-24 12:00] VITALS: BP 145/61
[2017-08-24 15:56] VITALS: BP 144/71
[2017-08-24] MEDS ORDERED: FUROSEMIDE40 MG ORAL (17:14)
[2017-08-24] MEDS ORDERED: CATAPRES-TTS 31 EACH TDERMAL (17:14)
[2017-08-24] MEDS ORDERED: PLAVIX75 MG ORAL (17:14)
[2017-08-24 17:52] VITALS: BP 144/71
--- NOTE | 2017-08-25 06:30 | Progress Note ---
DATE: 08/24/2017 CARDIOLOGY PROGRESS NOTE SUBJECTIVE: The patient without distress. Mobility improved. Echocardiogram revealed normal ejection fraction with no wall motion abnormalities or signs of thrombus. OBJECTIVE: VITAL SIGNS: Blood pressure 144/71, pulse 65, and respirations 18. NECK: Supple. No bruits. LUNGS: Clear. CARDIAC: Regular rhythm and rate. Normal S1 and S2 with a fourth heart sound. EXTREMITIES: No edema. IMPRESSION: 1. Acute CVA. 2. Hypertensive heart disease. 3. Dyslipidemia. 4. Acute on chronic diastolic congestive heart failure. 5. Chronic kidney disease. PLAN: 1. Maintenance diuretic dose orally. 2. Continue current antihypertensives. 3. Further up-titration may be required as an outpatient. 4. Antiplatelet therapy. 5. Statin drug for LDL goal less than 100. Eulogio Srivastava M.D. DR: KAITLIN JOB#: [id number] CC:
--- NOTE | 2017-08-25 06:35 | Cardiology Report ---
APPROVED REPORT EXAM: Two-dimensional and M-mode echocardiogram with Doppler and color Doppler. INDICATION CVA M-Mode DIMENSIONS IVSd1.0 (0.7-1.1cm)Left Atrium (MM)3.6 (1.6-4.0cm) LVDd4.2 (3.5-5.6cm)Aortic Root2.7 (2.0-3.7cm) PWd1.2 (0.7-1.1cm)Aortic Cusp Exc.1.5 (1.5-2.0cm) LVDs2.5 (2.5-4.0cm) PWs1.2 cm Normal left ventricular chamber size, systolic function and wall motion. Left ventricular ejection fraction estimated to be 60-65%. No evidence of left ventricular hypertrophy. No evidence of pericardial or pleural effusion. Right cardiac chamber sizes are within normal limits. Mild left atrial enlargement by 2D. Focal aortic valve sclerosis with adequate cusp excursion. Thickened mitral valve leaflets with normal excursion. Mild mitral annulus and aortic root calcification. Pulmonic valve not well visualized. Normal tricuspid valve structure. IVC is normal in size and collapsible with respiration. A color flow and spectral Doppler study was performed and revealed: No aortic regurgitation. Mild mitral regurgitation. Mitral diastolic velocities suggest reduced left ventricular relaxation c/w diastolic dysfunction grade 1. Mild tricuspid regurgitation. Tricuspid systolic velocities suggests peak right ventricular systolic pressure of 58mmHg Consistent with severe pulmonary hypertension.
--- NOTE | 2017-08-25 17:00 | Discharge Summary ---
DATE OF ADMISSION: 08/20/2017 DATE OF DISCHARGE: 08/24/2017 PERTINENT HISTORY: The patient is a 71-year-old lady, admitted with new right-sided weakness and gait disorder. There is longstanding hypertension, insulin-dependent diabetes, and chronic kidney disease. PERTINENT PHYSICAL FINDINGS: GENERAL: The patient is alert and oriented. HEAD, EYES, EARS, NOSE, AND THROAT: Unremarkable. LUNGS: Clear. HEART: Regular rhythm. An apical S4 and a 1-2/6 systolic ejection murmur. ABDOMEN: Without organomegaly. EXTREMITIES: Showed 2+ edema. NEUROLOGIC: She is alert and oriented. There is a mild right-sided weakness and unsteady gait. COURSE IN THE HOSPITAL: The patient was observed on telemetry unit. There was no arrhythmias. She had MRI showing multiple old infarcts and acute infarct in the left pritesh and mid brain. The patient was seen by Dr. Thomas in Neurology consultation. She was given aspirin and Plavix, and we gradually titrated the blood pressure medicines and insulin. She required physical therapy and needed to walk with a walker as she had a mild right leg drag. She was also seen by Speech Therapy and there was a concern about dysphagia and suggested a gradual upgrade of her diet and swallow therapy was instructed. The patient on the day of discharge felt better. Her vital signs were stable. Lungs clear. Heart, regular rhythm. She had 1+ edema. She was discharged home with home health living. FINAL DIAGNOSES: 1. 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 2. Insulin-dependent diabetes with diabetic nephropathy. 3. Acute on chronic diastolic congestive heart failure. 4. Severe hypertension. 5. Chronic kidney disease stage 3 with proteinuria, likely nephrotic syndrome. 6. Anemia of chronic kidney disease. DISCHARGE DISPOSITION: Home with home health. DISCHARGE MEDICATIONS: By the discharge medication list. FOLLOWUP: Follow up with her primary care physician, who is not on staff at [facility]. Tyree Mcfarlane M.D. DR: ALEXIS JOB#: [id number] CC:
--- NOTE | 2017-08-28 15:28 | Diagnostic Imaging Report ---
Indication: Dysphasia Procedure and findings: Real-time fluoroscopic imaging performed in a lateral projection in conjunction with the speech pathologist evaluation. Variable consistencies of barium given per mouth. Findings: Significant abnormalities of both oral and pharyngeal phases of swallowing are demonstrated. Total fluoroscopic time 220 seconds. No definite aspiration identified. Trace laryngeal penetration with thin barium and nectar noted. Abnormal video swallow. Please refer to speech pathology evaluation for more information.
--- NOTE | 2017-08-29 13:17 | Diagnostic Imaging Report ---
APPROVED REPORT CPT Code: 62984 Present Symptoms Lower Extremity Edema: Bilateral BILATERAL: Imaging reveals a patent deep venous system bilaterally. There is no evidence of thrombus within the femoral, popliteal or tibial segments. The greater saphenous veins are also within normal limits. Doppler indicates normal spontaneous flow within these segments.
== END 2017-08-24 19:26 | disposition home health service (06) | DRG 64 ==
LOC: EDBD 09:49 → EMR 10:00 → 2E 11:25 → EDBEDREQ 14:16 → 2E 08-23 13:31
DX: I63.29 Cerebral infarction due to unspecified occlusion or stenosis of other precerebral arteries (principal); I50.33 Acute on chronic diastolic (congestive) heart failure; E11.21 Type 2 diabetes mellitus with diabetic nephropathy; E11.42 Type 2 diabetes mellitus with diabetic polyneuropathy; G81.91 Hemiplegia, unspecified affecting right dominant side; I13.0 Hypertensive heart and chronic kidney disease with heart failure and stage 1 through stage 4 chronic kidney disease, or unspecified chronic kidney disease; R26.0 Ataxic gait; N18.3 Chronic kidney disease, stage 3 (moderate); E11.319 Type 2 diabetes mellitus with unspecified diabetic retinopathy without macular edema; D63.1 Anemia in chronic kidney disease; Z79.4 Long term (current) use of insulin; E03.9 Hypothyroidism, unspecified; E78.5 Hyperlipidemia, unspecified; R13.10 Dysphagia, unspecified
CPT/HCPCS: 36415; 70450; 70551; 71045; 74230; 80048; 80053; 80061; 81003; 82550; 82962; 83880; 84443; 84484; 85025; 85610; 85651; 85730; 93005; 93306; 93880; 93970; 99285; J1815

== ENCOUNTER 2018-01-20 07:58 | Emergency (ER) | payer MEDICARE, BC ==
[~2018-01-20] VITALS: Ht 160 cm; Wt 63.0 kg
[~2018-01-20 07:58] MED LIST changes: +BYSTOLIC20 MG ORAL; +CATAPRES-TTS 31 EACH TDERMAL; +ECOTRIN81 MG PO; +FUROSEMIDE40 MG ORAL; +HYDRALAZINE HC100 MG ORAL; +LASIX20 M1 ORAL; +LOSARTAN POTAS100 MG ORAL; +METFORMIN HCL1000 M1 ORAL; +NIFEDIPINE ER60 M2 ORAL; +NOVOLOG MI100 UNIT/3 SQ; +PLAVIX75 MG ORAL; +SIMVASTATIN20 MG ORAL; +TENORMIN50 MG ORAL
[2018-01-20 08:19] VITALS: BP 183/71
[2018-01-20] MEDS ORDERED: CEPHALEXIN500 MG ORAL (08:29)
[2018-01-20] MEDS ORDERED: BACITRACIN15 GM TOPIC (08:29)
[2018-01-20 08:36] VITALS: BP 170/69
--- NOTE | 2018-01-20 09:40 | Emergency Room Report ---
History of Present Illness General Chief Complaint: Skin Rash/Abscess Source: Patient Present Illness HPI 72-year-old female presents ED complaining of a blister to her right leg. States she noticed yesterday after she was bitten by an insect. Pain is dull, 3 out of 10, nonradiating. States there is a large fluid-filled blister to the back of her leg. Denies fevers or chills. Denies any discharge. No other aggravating relieving factors. Denies any other associated symptoms Allergies: Coded Allergies: No Known Allergies (Unverified , 03/18/13) Patient History Past Medical History: DM, GERD Pertinent Family History: none Social History: Denies: smoking, alcohol use, drug use Last Menstrual Period: NA Now: No Immunizations: UTD Reviewed Nursing Documentation: PMH: Agreed; PSxH: Agreed Nursing Documentation-PMH Past Medical History: No History, Except For Hx Cardiac Problems: Yes Hx Hypertension: Yes Hx Diabetes: Yes Hx Cancer: No Hx Gastrointestinal Problems: Yes - "Sometimes I have heartburn" Hx Neurological Problems: No Review of Systems All Other Systems: negative except mentioned in HPI Physical Exam Vital Signs Date Time Temp Pulse Resp B/P (MAP) Pulse Ox O2 Delivery O2 Flow Rate FiO2 01/20/18 08:00 98.3 67 16 183/71 94 Room Air 98.2 Sp02 EP Interpretation: reviewed, normal General Appearance: no apparent distress, alert, GCS 15, non-toxic Head: normocephalic Eyes: bilateral eye normal inspection, bilateral eye PERRL ENT: normal ENT inspection Neck: normal inspection Respiratory: normal inspection Cardiovascular #1: normal inspection Gastrointestinal: normal inspection Rectal: deferred Genitourinary: no CVA tenderness Musculoskeletal: back normal, gait/station normal, normal range of motion, non- tender Neurologic: alert, oriented x3, responsive, motor strength/tone normal, sensory intact, speech normal Psychiatric: judgement/insight normal, memory normal, mood/affect normal, no suicidal/homicidal ideation Skin: other - 3x3cm fluid filled blister to posterior calf. no surrounding erythema/induration Lymphatic: normal inspection Medical Decision Making Diagnostic Impression: Primary Impression: Insect bite Qualified Codes: W57.XXXA - Bitten or stung by nonvenomous insect and other nonvenomous arthropods, initial encounter ER Course Hospital Course 72-year-old female presents to ED with redness, swelling to RLE Differential diagnoses include: Cellulitis, dermatitis, insect bite, abscess Clinical course Patient placed on stretcher. After initial history, physical exam reveals a female in no acute distress. On exam there is a 3 x 3 cm fluid-filled blister to the back of the right leg. No surrounding erythema or induration. No discharge. I explained to the patient that we will not pop the blister here as it its protective. We will prescribe antibiotics and bacitracin. Close follow-up with PMD Diagnosis - insect bite stable and discharged to home with prescription for bacitracin, Keflex. Instructed to followup with PMD. Instructed return to ED if symptoms recur or worsen Last Vital Signs Date Time Temp Pulse Resp B/P (MAP) Pulse Ox O2 Delivery O2 Flow Rate FiO2 01/20/18 08:36 98.2 80 16 170/69 96 Room Air 98.2 Status: improved Disposition: HOME, SELF-CARE Condition: Stable Scripts Bacitracin (Bacitracin) 28.4 Gm Oint...g. 1 APPLIC TOPIC THREE TIMES A DAY, #28.4 GM Prov: Elías Denton MD 01/20/18 Cephalexin* (KEFLEX*) 500 Mg Capsule 500 MG ORAL EVERY 6 HOURS for 7 Days, CAP Prov: Elías Denton MD 01/20/18 Referrals: ROMULO LOW (PCP) Patient Instructions: Insect Bite, [id number] Elías Denton MD Jan 20, 2018 09:40
== END 2018-01-20 08:37 | disposition home or self-care (01) ==
LOC: EMR 08:20
DX: S80.861A Insect bite (nonvenomous), right lower leg, initial encounter (principal); W57.XXXA Bitten or stung by nonvenomous insect and other nonvenomous arthropods, initial encounter; E11.9 Type 2 diabetes mellitus without complications; K21.9 Gastro-esophageal reflux disease without esophagitis; I10 Essential (primary) hypertension
CPT/HCPCS: 99284

== ENCOUNTER 2018-01-27 11:26 | Emergency (ER) | payer MEDICARE, BC ==
[~2018-01-27] VITALS: Ht 160 cm; Wt 63.5 kg
[~2018-01-27 11:26] MED LIST changes: +BACITRACIN15 GM TOPIC; +CEPHALEXIN500 MG ORAL
[2018-01-27 12:16] VITALS: BP 132/59
[2018-01-27] MEDS ORDERED: Bacitracin Oint UD TOPIC ONE (12:30)
[2018-01-27] MEDS ORDERED: BACITRACIN15 GM TOPIC (13:02)
[2018-01-27] MEDS ORDERED: AUGMENTIN 875-1 EAC1 ORAL (13:02)
[2018-01-27 13:16] VITALS: BP 156/68
--- NOTE | 2018-01-28 07:22 | Emergency Room Report ---
History of Present Illness General Chief Complaint: Skin Rash/Abscess Source: Patient Present Illness HPI 72-year-old female presents ED complaining of wound to her right leg. States she was here approximately one week ago for a blister to her right leg after a "insect bite". Patient was discharged on bacitracin and antibiotics. Patient states that the blister did pop and states there is a wound underneath the blister. States she completed the antibiotic course. States it is itchy. Mild pain. 3 out of 10, dull, nonradiating. Denies any discharge. Denies any fevers or chills. No other aggravating relieving factors. Denies any other associated symptoms Allergies: Coded Allergies: No Known Allergies (Unverified , 03/18/13) Patient History Past Medical History: DM, HTN, GERD, CVA/TIA Past Surgical History: none Pertinent Family History: none Social History: Denies: smoking, alcohol use, drug use Now: No Immunizations: UTD Reviewed Nursing Documentation: PMH: Agreed; PSxH: Agreed Nursing Documentation-PMH Hx Cardiac Problems: Yes Hx Hypertension: Yes Hx Diabetes: Yes Hx Cancer: No Hx Gastrointestinal Problems: Yes - "Sometimes I have heartburn" Hx Neurological Problems: No Review of Systems All Other Systems: negative except mentioned in HPI Physical Exam Vital Signs Date Time Temp Pulse Resp B/P (MAP) Pulse Ox O2 Delivery O2 Flow Rate FiO2 01/27/18 11:39 75 18 132/59 95 Room Air 01/27/18 12:16 98.7 98.7 Sp02 EP Interpretation: reviewed, normal General Appearance: no apparent distress, alert, GCS 15, non-toxic Head: normocephalic Eyes: bilateral eye normal inspection, bilateral eye PERRL ENT: normal ENT inspection Neck: normal inspection Respiratory: normal inspection Cardiovascular #1: normal inspection Gastrointestinal: normal inspection Rectal: deferred Genitourinary: no CVA tenderness Musculoskeletal: back normal, gait/station normal, normal range of motion, non- tender Neurologic: alert, oriented x3, responsive, motor strength/tone normal, sensory intact, speech normal Psychiatric: normal inspection Skin: other - 4x2cm ulcer to R posterior LE. nonerythematous. no induration. no crepitus Lymphatic: normal inspection Medical Decision Making Diagnostic Impression: Primary Impression: Wound of left leg Qualified Codes: S81.802D - Unspecified open wound, left lower leg, subsequent encounter ER Course Hospital Course 72-year-old female presents to ED with ulcer to R leg Differential diagnoses include: Cellulitis, dermatitis, insect bite, abscess Clinical course Patient placed on stretcher. After initial history, physical exam reveals an elderly female in no acute distress. On exam there is a 4 x 2 cm ulcer to posterior RLE. There is area of the blistered skin that has retracted. There is no fluctuance or induration. No discharge. This is her second visit for this complaint. On previous visit patient had a large blister over the aforementioned area. I saw this patient at the time and discharged on antibiotics. Instructed patient not to pop the blister Good pulses to the foot. No swelling. Patient appears afebrile and nontoxic. I did offer option for admission and IV antibiotics but patient states that she feels fine and wants to be discharged I will provide her with podiatry/surgery referrals for wound care. Wound is dressed, bacitracin. Diagnosis - wound of left leg stable and discharged to home with prescription for augmentin, bacitracin. wound care instructions given. Instructed to followup with podiatry/surgery. Instructed return to ED if symptoms recur or worsen Last Vital Signs Date Time Temp Pulse Resp B/P (MAP) Pulse Ox O2 Delivery O2 Flow Rate FiO2 01/27/18 13:16 98.2 63 20 156/68 92 Room Air 98.2 Status: improved Disposition: HOME, SELF-CARE Condition: Stable Scripts Bacitracin (Bacitracin) 28.4 Gm Oint...g. 1 APPLIC TOPIC THREE TIMES A DAY, #28.4 GM Prov: Elías Denton MD 01/27/18 Amoxicillin/Potassium Clav 875-125* (AUGMENTIN 875-125 TABLET*) 1 Each Tablet 1 TAB ORAL TWICE A DAY, #14 TAB Prov: Elías Denton MD 01/27/18 Referrals: Scott Chi BENJAMIN M.D. Patient Instructions: Wound Check Elías Denton MD Jan 28, 2018 07:22
== END 2018-01-27 13:16 | disposition home or self-care (01) ==
LOC: EMR 12:20
DX: S81.802D Unspecified open wound, left lower leg, subsequent encounter (principal); E11.9 Type 2 diabetes mellitus without complications; I10 Essential (primary) hypertension; K21.9 Gastro-esophageal reflux disease without esophagitis; Z86.73 Personal history of transient ischemic attack (TIA), and cerebral infarction without residual deficits; W57.XXXD Bitten or stung by nonvenomous insect and other nonvenomous arthropods, subsequent encounter
CPT/HCPCS: 99284